=== PATIENT | male | born 1950 | race Asian ===

== ENCOUNTER → 2018-03-03 | Outpatient (CLI) | payer MEDICARE ==
[~2018-03-03] MED LIST: IOHEXOL 180 MG/ML 10 ML VIAL.; methylPREDNISolone ACETATE 40 MG/ML VIAL.; methylPREDNISolone ACETATE 80 MG/ML VIAL.
== END | disposition home or self-care (01) ==
LOC: PNCL 12:51
DX: M51.16 Intervertebral disc disorders with radiculopathy, lumbar region (principal); M48.062 Spinal stenosis, lumbar region with neurogenic claudication; I10 Essential (primary) hypertension; M19.90 Unspecified osteoarthritis, unspecified site; E11.9 Type 2 diabetes mellitus without complications; Z95.1 Presence of aortocoronary bypass graft; Z79.4 Long term (current) use of insulin; Z79.899 Other long term (current) drug therapy; Z79.82 Long term (current) use of aspirin; Z83.3 Family history of diabetes mellitus; Z82.49 Family history of ischemic heart disease and other diseases of the circulatory system
CPT/HCPCS: 62323; J1030; J1040; Q9965

== ENCOUNTER → 2018-03-17 | Outpatient (CLI) | payer MEDICARE ==
[~2018-03-17] MED LIST changes: +LIDOCAINE 1% PF 2 ML VIAL.
== END ==
LOC: PNCL 10:07
DX: M48.062 Spinal stenosis, lumbar region with neurogenic claudication (principal); M51.16 Intervertebral disc disorders with radiculopathy, lumbar region; E11.9 Type 2 diabetes mellitus without complications; I10 Essential (primary) hypertension; M19.90 Unspecified osteoarthritis, unspecified site; Z83.3 Family history of diabetes mellitus; Z82.49 Family history of ischemic heart disease and other diseases of the circulatory system; Z79.82 Long term (current) use of aspirin; Z79.4 Long term (current) use of insulin; Z79.899 Other long term (current) drug therapy; Z95.1 Presence of aortocoronary bypass graft
CPT/HCPCS: 62323; J1030; J1040; Q9965

== ENCOUNTER → 2018-08-05 | Outpatient (CLI) | payer MEDICARE ==
[~2018-08-05] MED LIST changes: +AMLO5TAB7 PO; +ASPI81TA50 PO; +ATOR10TA60 PO; +DOCU-109 PO; +EZET10TA18 PO; +GABA-586 PO; +HYDR-2758 PO; +HYDR12.53 PO; +INSU100C4 SQ; +INSU100I13 SQ; -IOHEXOL 180 MG/ML 10 ML VIAL.; -LIDOCAINE 1% PF 2 ML VIAL.; +LIRA0.6P2 SQ; +METH750T2 PO; +METO25TA4 PO; +MULT-658 PO; -methylPREDNISolone ACETATE 40 MG/ML VIAL.; -methylPREDNISolone ACETATE 80 MG/ML VIAL.
[2018-08-05 14:01] LABS: BASO # 0.1 x10^3/uL (0.0-0.2); BASO % 1 % (0-3); EOS # 0.1 x10^3/uL (0.0-0.7); EOS % 2 % (0-3); HEMATOCRIT 41.4 % (39.0-53.0); HEMOGLOBIN 13.6 g/dL (13.0-17.5); LYMPH # 3.1 x10^3/uL (1.0-4.8); LYMPH % 42 % (24-48); MEAN CORPUSCULAR HEMOGLOBIN 28 pg (25-35); MEAN CORPUSCULAR HGB CONC 33 g/dL (31-37); MEAN CORPUSCULAR VOLUME 85 fL (79-100); MONO # 0.9 x10^3/uL (0.0-1.1); MONO % 12 % (0-9); NEUT # 3.3 x10^3uL (1.8-7.7); NEUT % 45 % (31-73); PLATELET COUNT 107 x10^3/uL (140-400); RED BLOOD COUNT 4.86 x10^6/uL (4.30-5.70); RED CELL DISTRIBUTION WIDTH 15.4 % (11.5-14.5); WHITE BLOOD COUNT 7.4 x10^3/uL (4.0-11.0)
[2018-08-05 14:14] LABS: ALBUMIN 3.8 g/dL (3.4-5.0); ALBUMIN/GLOBULIN RATIO 0.8 (1.0-1.7); CALCIUM 9.1 mg/dL (8.5-10.1); CREATININE 1.7 mg/dL (0.7-1.3); GFR 40.2; POTASSIUM 4.1 mmol/L (3.5-5.1); TOTAL BILIRUBIN 0.7 mg/dL (0.2-1.0); TOTAL PROTEIN 8.7 g/dL (6.4-8.2)
[2018-08-06 01:17] LABS: HEMOGLOBIN A1C 7.8 % (4.8-5.6)
== END | disposition home or self-care (01) ==
LOC: SURGPAT 12:44
PROVIDERS: ATTEND Neurological Surgery
DX: Z01.818 Encounter for other preprocedural examination (principal); M48.061 Spinal stenosis, lumbar region without neurogenic claudication; E11.9 Type 2 diabetes mellitus without complications
CPT/HCPCS: 36415; 80053; 83036; 85025; 87641

== ENCOUNTER 2018-08-12 07:03 | Observation (INO) | payer MEDICARE ==
[~2018-08-12] VITALS: Ht 162.6 cm; Wt 88.0 kg
[2018-08-12] VITALS (10 sets, daily range): BP systolic 105–130; BP diastolic 60–80
[~2018-08-12 07:03] MED LIST changes: +BACITRACIN 50,000 UNIT in IV NORMAL SALINE 1000ML BAG 1,000 ML IRR ONE; +BUPIVAC MPF-EPI 0.5%-1:200000 30 ML VIAL. ONE; -DOCU-109 PO; +GELATIN SPONGE SIZE 100. ONE; -HYDR-2758 PO; +HYDROmorphone 2 MG/ML VIAL IV PRN; +IV RINGERS,LACTATED 1000ML 1,000 ML IV SCH; +KETOROLAC 60 MG/2 ML INJ FOR OR. ONE; +LIDOCAINE 1% PF 2 ML VIAL. ID PRN; -METH750T2 PO; +ONDANSETRON PF 4 MG/2 ML VIAL. IV PRN; +PROCHLORPERAZINE 10 MG/2 ML VIAL. IV PRN; +THROMBIN TOPICAL 20,000 UNIT SPRAY.SYRN KIT TP ONE; +fentaNYL PF VIAL 100 MCG/2 ML VIAL IV PRN
[2018-08-12] MEDS ORDERED: PROPOFOL 50 ML IV ONE ×2 (07:59→10:38)
[2018-08-12] MEDS ORDERED: DEXAMETHASONE SOD PHOS 20 MG/5 ML VIAL. ONE (07:59)
[2018-08-12] MEDS ORDERED: ROCURONIUM 50 MG/5 ML VIAL. ONE (07:59)
[2018-08-12] MEDS ORDERED: PROPOFOL 20 ML IV ONE (07:59)
[2018-08-12] MEDS ORDERED: LIDOCAINE 2% PF Vial for OR 5 ML VIAL. ONE (07:59)
[2018-08-12] MEDS ORDERED: REMIFENTANIL 2 MG VIAL. IV ONE (07:59)
[2018-08-12] MEDS ORDERED: ONDANSETRON PF 4 MG/2 ML VIAL. ONE (07:59)
[2018-08-12] MEDS ORDERED: PHENYLEPHRINE 10 MG/ML VIAL. ONE ×3 (07:59→08:05)
[2018-08-12] MEDS ORDERED: 0.9 % SODIUM CHLORIDE 20 ML VIAL. IJ ONE ×2 (08:04→08:05)
[2018-08-12] MEDS ORDERED: MINERAL OIL/PETROLATUM,WHITE OPHTH OINT 3.5GM TUBE. ONE (08:04)
[2018-08-12] MEDS ORDERED: GLYCOPYRROLATE 1 MG/5 ML VIAL. ONE (09:12)
--- NOTE | 2018-08-12 09:41 | PREOP HP ---
DATE OF SERVICE: 08/12/2018 DATE OF SURGERY: 08/12/2018 HISTORY OF PRESENT ILLNESS: The patient is a pleasant 67-year-old man with low back pain and numbness and weakness in both of his legs. The right leg is more involved than the left. Standing and walking increases his pain. He gets relief by sitting. Since I saw him last, he tried epidural steroid injections, which have given him no significant relief. PAST MEDICAL HISTORY: Hypertension, diabetes. PAST SURGICAL HISTORY: CABG in 2002. FAMILY HISTORY: Noncontributory to diabetes and hypertension. SOCIAL HISTORY: Retired. . Exercises daily. Denies substance abuse. Denies tobacco use. Denies alcohol consumption. ALLERGIES: No known drug allergies. CURRENT MEDICATIONS: Aspirin, gabapentin, metoprolol, Norvasc and NovoLog. REVIEW OF SYSTEMS: A 12-point review of systems was obtained and is noncontributory except for that mentioned above. PHYSICAL EXAMINATION: NEUROSURGERY EXAMINATION: GENERAL APPEARANCE: Alert, pleasant, in no acute distress. HEAD: Normocephalic and atraumatic. SKIN: Warm and dry. MUSCULOSKELETAL: Lumbar paraspinal muscle bulk is normal, restricted range of motion of the lumbar spine, [id number] tenderness of lower lumbar spine with palpation, normal range of motion of the lower extremities bilaterally. EXTREMITIES: No clubbing, cyanosis or edema. NEUROLOGIC: Alert and oriented x 3, normal recent and remote memory. Strength 5/5 in bilateral lower extremities. Sensory is intact to light touch in the lower extremities bilaterally. Reflexes are present and symmetric in the bilateral lower extremities. Negative straight leg raising bilaterally, normal gait. IMAGING: I reviewed a lumbar MRI scan available. On that study there is moderately severe lateral stenosis at L3-L4 and L4-L5. ASSESSMENT/ PLAN: My plan is to move forward with lumbar microsurgery to decompress the area. I did spend some time discussing this with the patient and his son. I outlined the risks of the surgery and the technique of the operation as well as expected postoperative course. He has been cleared by his repairer wood furniture, Dr. Lubin. We will proceed with the lumbar microdecompression at L3-L4, L4-L5 bilaterally. ROBERT HOWELL MD DR: ERVIN/irasema JOB#: [id number] / [id number] MTDD
[2018-08-12] MEDS ORDERED: DESFLURANE > 120 MINUTES IH ONE (09:48)
[2018-08-12] MEDS ORDERED: POTASSIUM CL 20MEQ-0.45% NACL 1,000 ML IV SCH (12:51)
[2018-08-12] MEDS ORDERED: MAG HYDROX/ALUMINUM HYD/SIMETH 30 ML ORAL.SUSP PO PRN (13:00)
[2018-08-12] MEDS ORDERED: diphenhydrAMINE HCL 25 MG CAPSULE PO PRN (13:00)
[2018-08-12] MEDS ORDERED: CALCIUM CARBONATE 500 MG TAB.CHEW PO PRN (13:00)
[2018-08-12] MEDS ORDERED: 0.9 % SODIUM CHLORIDE 10 ML DISP.SYRIN. IV PRN (13:00)
[2018-08-12] MEDS ORDERED: DEXTROSE 50% 25 GM / 50ML DISP.SYRIN. IV PRN (13:00)
[2018-08-12] MEDS ORDERED: MAGNESIUM HYDROXIDE 2,400 MG/30 ML ORAL.SUSP. PO PRN (13:00)
[2018-08-12] MEDS ORDERED: ACETAMINOPHEN 325 MG TABLET. PO PRN (13:00)
[2018-08-12] MEDS ORDERED: fentaNYL PF VIAL 100 MCG/2 ML VIAL IV PRN (13:00)
[2018-08-12] MEDS ORDERED: HYDROcodone/APAP 5/325MG 1 TAB TABLET PO PRN (13:00)
[2018-08-12] MEDS: fentaNYL PF VIAL 100 MCG/2 ML VIAL IV PRN ×2 (13:18→13:49)
[2018-08-12] MEDS ORDERED: INSULIN LISPRO 100 UNIT/ML 3ML VIAL. SQ ONE (13:45)
[2018-08-12] MEDS: amLODIPine BESYLATE 5 MG TABLET PO SCH (14:00)
[2018-08-12] MEDS: METOPROLOL TART IMMED RELEASE 25 MG TABLET. PO SCH (14:00)
[2018-08-12] MEDS ORDERED: MORPHINE SULFATE 2 MG/ML VIAL. ONE (14:05)
[2018-08-12] MEDS: MORPHINE SULFATE 2 MG/ML VIAL. IV PRN ×2 (14:08→14:18)
[2018-08-12] MEDS: INSULIN LISPRO 300 UNITS/3 ML INSULN.PEN. SQ SCH (17:00)
[2018-08-12] MEDS: EZETIMIBE 10 MG TABLET. PO SCH (17:15)
[2018-08-12] MEDS: GABAPENTIN 300 MG CAPSULE. PO SCH ×2 (17:15→21:11)
[2018-08-12] MEDS: hydroCHLOROthiazide 12.5 MG CAPSULE PO SCH (17:15)
[2018-08-12] MEDS: MULTIVITAMIN with MINERAL TABLET. PO SCH (17:15)
[2018-08-12] MEDS: METHOCARBAMOL 750 MG TABLET PO SCH ×2 (17:15→21:11)
[2018-08-12] MEDS: ASPIRIN ENTERIC COATED 81 MG TABLET.DR. PO SCH (17:15)
[2018-08-12] MEDS: HYDROcodone/APAP 5/325MG 1 TAB TABLET PO PRN ×2 (17:16→21:13)
[2018-08-12] MEDS ORDERED: ATORVASTATIN CALCIUM 10 MG TABLET. PO SCH (21:00)
[2018-08-12] MEDS: DOCUSATE SODIUM 100 MG CAPSULE. PO SCH (21:11)
[2018-08-13 06:20] VITALS: BP 116/70
[2018-08-13] MEDS: METHOCARBAMOL 750 MG TABLET PO SCH (08:14)
[2018-08-13] MEDS: MULTIVITAMIN with MINERAL TABLET. PO SCH (08:14)
[2018-08-13] MEDS: GABAPENTIN 300 MG CAPSULE. PO SCH (08:14)
[2018-08-13] MEDS: DOCUSATE SODIUM 100 MG CAPSULE. PO SCH (08:14)
[2018-08-13] MEDS: hydroCHLOROthiazide 12.5 MG CAPSULE PO SCH (08:15)
[2018-08-13] MEDS: amLODIPine BESYLATE 5 MG TABLET PO SCH (08:16)
[2018-08-13] MEDS: METOPROLOL TART IMMED RELEASE 25 MG TABLET. PO SCH (08:16)
[2018-08-13] MEDS: EZETIMIBE 10 MG TABLET. PO SCH (08:17)
[2018-08-13] MEDS: ASPIRIN ENTERIC COATED 81 MG TABLET.DR. PO SCH (08:19)
[2018-08-13] MEDS: INSULIN LISPRO 300 UNITS/3 ML INSULN.PEN. SQ SCH (08:25)
[2018-08-13] MEDS: HYDROcodone/APAP 5/325MG 1 TAB TABLET PO PRN ×2 (08:38→11:10)
[2018-08-13] MEDS ORDERED: INSULIN GLARGINE 300 UNITS/3 ML INSULN.PEN. SQ SCH (09:00)
--- NOTE | 2018-08-13 10:28 | DISCH ---
DISCHARGE INSTRUCTIONS Condition on Discharge Condition on Discharge: Stable Activity After Discharge Activity Instructions for Disc: Activity as tolerated, Avoid exertion Other activity instructions: no driving for a week Bathing Instructions: Shower-keep dressing dry Lifting Instructions after Dis: No heavy lifting, No pulling or pushing, Do not lift >10 pounds Diet after Discharge Additional Diet Restrictions: resume home diet Wound Incision Care Wound/Incision Care: Ice to area for comfort Other wound/incision instructi: may remove dressing in 48 hrs if dry then may shower, no soaking Contacting the after DC Call your doctor for: Concerns you may have Follow-Up Follow up with: Dr. Howell's nurse in 2 weeks [phone] ROBERT HOWELL MD Aug 13, 2018 10:28
[2018-08-13] MEDS ORDERED: METH750T2 PO (10:31)
[2018-08-13] MEDS ORDERED: HYDR-2758 PO (10:31)
[2018-08-13] MEDS ORDERED: DOCU-109 PO (10:31)
[2018-08-13 10:52] VITALS: BP 114/72
--- NOTE | 2018-08-13 15:07 | PATHOLOGY ---
[facility] Accession Number: [id number] . 01 Material submitted: . LUMBAR DECOMPRESSION AND DISC . 01 Clinician provided ICD-10: M48.061 . 01 Clinical history: . Lumbar stenosis . 02 Diagnosis: Segments of fibrocartilaginous, fibroadipose, and skeletal muscle tissue and bone, lumbar decompression and disc: - Degenerative changes of fibrocartilaginous tissue. P/08/13/2018 . 02 Comment: There is no evidence of an acute inflammatory process or malignancy. (JPM:[facility] 08/13/2018) . 02 Electronically signed: . Chidi Lunsford MD, Pathologist NPI- [id number] . 01 Gross description: . Received in formalin labeled "Scruggs, Terry, lumbar decompression and disc," are multiple segments of gran and devlin-white rubbery and gritty tissue measuring 6.7 x 5.5 x 1.9 cm in aggregate dimensions, containing small fragments of possible bone. The tissue submitted representatively in cassette A1, following decalcification. (TSD; 08/12/2018) TOB/TOB . 02 Pathologist provided ICD-10: M51.36 . 02 CPT . 684173, [id number] Specimen Comment: A courtesy copy of this report has been sent to Specimen Comment: [phone]. Specimen Comment: Report sent to Performed at: 01 [facility] [address] [place], [place] [id number] MD Adrian Wilson MD Phone: [phone] Performed at: 02 [facility] [address] [place], [place] [id number] MD Chidi Lunsford MD Phone: [phone]
--- NOTE | 2018-08-18 18:27 | OP ---
DATE OF SURGERY: 08/12/2018 PREOPERATIVE DIAGNOSIS: Lumbar spinal stenosis L3-L4, L4-L5 with neurogenic claudication. POSTOPERATIVE DIAGNOSIS: Lumbar spinal stenosis L3-L4, L4-L5 with neurogenic claudication. OPERATION PERFORMED: Hemilaminotomy with decompression of dura and nerve root L3-L4, bilateral and L4-L5, bilateral. The operation was done with EMG monitoring, SSEP monitoring, fluoroscopy, microscopic dissection. SURGEON: Fred Howell M.D. BOX SEALING MACHINE OPERATOR: VIDA Au assisted with the surgery. She assisted with the exposure, the multilevel decompression as well as the closure. OPERATIVE INDICATIONS: The patient is a pleasant 68-year-old man who developed intractable back and bilateral leg pain, which failed to improve with epidural steroid injections. The problem was found to be lumbar spinal stenosis, which was severe as described above at L3-L4 and L4-L5 and I recommended bilateral lumbar microdecompressive surgery. He understood the surgery, the risks, the technique and expected postoperative course and wished to go ahead. DESCRIPTION OF PROCEDURE: Following general endotracheal anesthesia, the patient was positioned prone on the Tenzin table. His lumbar region was prepped and draped in standard fashion. HYUN hose and AV impulse boots were applied for DVT prophylaxis. Microscope was draped. Fluoroscopy was draped and brought in the field. Monitoring was established. Ancef 2 grams was given less than 1 hour prior to initiation of the surgery. Using fluoroscopic guidance, a midline incision was made extending from L3-L5. I dissected down skin and subcutaneous tissue, reflected the paraspinal muscles to the left and placed a Belcher microdisk retractor beginning my attention to L4-L5 and bringing in the microscope and using microscopic technique. I used a high speed air drill to bur down a very generous hemilaminotomy at this level. I peeled away thickened ligamentum flavum from medial to lateral. I performed a generous partial foraminotomy and I worked and carried the ligament lateral to the lateral edge of the dura. As I worked, the region became well decompressed. I did palpate the disc. It was flat and no discectomy was warranted. I then went up to L3-L4 and performed the identical operation at L3-L4, again peeling ligament from medial to lateral and using 2.5 and 4-mm Kerrison rongeurs as well as the high speed air drill. Again, the partial foraminotomy was performed. Again, the disc was flat, no discectomy was warranted. I then went to the right side and performed the identical operation at L3-L4 and L4-L5 and fully decompressed the entire region. I explored carefully. Hemostasis was excellent. The roots were very well decompressed and I was quite pleased thus far. I did use small amounts of bone wax as well as a bipolar cautery for any bleeding. I irrigated copiously. I closed the wound in layers with absorbable suture after excellent hemostasis had been obtained. The skin was closed with 4-0 subcuticular stitch. The operation went very well and the patient was taken to recovery room in excellent condition. I was quite pleased with the surgery. FRED HOWELL MD DR: ERVIN/irasema JOB#: [id number] / [id number] CHRISTINA
== END 2018-08-13 11:33 | disposition home or self-care (01) ==
LOC: SURG 07:03 → 4 SOUTHEST 12:51
PROVIDERS: ADMIT Neurological Surgery; ATTEND Neurological Surgery
DX: M48.062 Spinal stenosis, lumbar region with neurogenic claudication (principal); E11.9 Type 2 diabetes mellitus without complications; I10 Essential (primary) hypertension; Z95.1 Presence of aortocoronary bypass graft
CPT/HCPCS: 63047; 63048; 76000; 82962; 88304; 88311; 96372; 97161; A7015; G0378; G0379; G8978; G8979; G8980; J0690; J1100; J1815; J1885; J2001; J2270; J2405; J2704; J3010; J3490; J7030